=== PATIENT | male | born 1955 | race Caucasian/White ===

== ENCOUNTER 2021-04-10 00:35 | Inpatient (IN) | payer OTHER ==
[~2021-04-10] VITALS: Ht 203.2 cm; Wt 81.2 kg
[2021-04-10] MEDS ORDERED: TADA20TA PO (00:47)
[2021-04-10] MEDS ORDERED: ETOD300C27 PO (00:47)
[2021-04-10] MEDS ORDERED: METF500T17 PO (00:47)
[2021-04-10] MEDS ORDERED: FENO150C2 PO (00:47)
[2021-04-10] MEDS ORDERED: GABA-827 PO (00:47)
[2021-04-10 00:50] VITALS: BP 131/80
[2021-04-10] MEDS ORDERED: OXYcodone/APAP 10/325MG TABLET PO PRN (02:00)
[2021-04-10] MEDS ORDERED: DOXYCYCLINE 100 MG in DEXTROSE 5% 250 ML IV SCH (02:00)
[2021-04-10] MEDS ORDERED: ACETAMINOPHEN 325 MG TABLET PO PRN (02:00)
[2021-04-10] MEDS ORDERED: ENALAPRILAT 1.25 MG/ML, 2ML IVPush PRN (02:00)
[2021-04-10] MEDS ORDERED: GUAIFENESIN/DM 200-20MG, 10ML UDC PO PRN (02:00)
[2021-04-10] MEDS ORDERED: ZOLPIDEM 5MG TABLET PO PRN (02:00)
[2021-04-10] MEDS ORDERED: ONDANSETRON 2MG/ML, 2ML IVPush PRN (02:00)
[2021-04-10] MEDS: LIDODERM 5% PATCH TD PRN (02:45)
[2021-04-10] MEDS: HEPARIN 5,000 UNITS/ML, 1ML SQ SCH ×3 (02:45→17:15)
[2021-04-10] MEDS: SENNA/DOCUSATE TABLET PO SCH ×2 (02:46→08:40)
[2021-04-10] MEDS: HYDROmorphone 2 MG/ML, 1ML IVPush PRN ×5 (02:46→16:13)
[2021-04-10] MEDS: LACTATED RINGERS 1,000 ML IV SCH ×3 (02:46→22:28)
[2021-04-10 02:59] LABS: BASOPHILS % (AUTO) 1 % (0-1); EOSINOPHILS % (AUTO) 0 % (1-7); LYMPHOCYTES % (AUTO) 18 % (22-44); MEAN CORPUSCULAR HEMOGLOBIN 26.8 pg (27.5-34.5); MEAN CORPUSCULAR HGB CONC 33.3 g/dL (33.2-36.2); MEAN PLATELET VOLUME 6.1 fL (7.4-10.4); MONOCYTES % (AUTO) 12 % (2-9); NEUTROPHILS % (AUTO) 69 % (42-75); PLATELET COUNT 245 x10^3/uL (130-400); RED BLOOD COUNT 3.62 x10^6/uL (4.38-5.82); RED CELL DISTRIBUTION WIDTH 18.8 % (9.4-14.8)
[2021-04-10 03:11] LABS: ANION GAP 4 mmol/L (5-15); CALCIUM 8.2 mg/dL (8.5-10.1); CHLORIDE 100 mmol/L (98-107); CREATININE 0.64 mg/dL (0.7-1.3)
[2021-04-10 06:21] VITALS: BP 111/70
[2021-04-10] MEDS: OXYcodone IR 5MG TABLET PO PRN ×3 (08:40→20:56)
[2021-04-10] MEDS: GABAPENTIN 300 MG CAPSULE PO SCH ×3 (08:40→20:11)
[2021-04-10] MEDS: metFORMIN 500 MG TABLET PO SCH (08:40)
[2021-04-10] MEDS: FENOFIBRATE 145 MG TABLET PO SCH (08:41)
[2021-04-10] MEDS ORDERED: POTASSIUM PHOSPHATE 44 MEQ in SODIUM CHLORIDE 0.9% 500 ML IV ONE (10:00)
[2021-04-10] MEDS: GUAIFENESIN ER 600 MG TABLET PO SCH ×2 (10:58→20:11)
[2021-04-10] MEDS: CEFUROXIME 1.5 GM in SODIUM CHLORIDE 0.9% 50 ML IV SCH ×2 (10:58→17:14)
[2021-04-10 12:03] VITALS: BP 113/73
[2021-04-10] MEDS: DOXYCYCLINE 100MG TABLET PO SCH (17:15)
[2021-04-10 18:39] VITALS: BP 123/71
[2021-04-10] MEDS ORDERED: LACTULOSE 10 GM/15 ML UDC PO PRN (19:30)
[2021-04-10] MEDS ORDERED: HYDROmorphone PCA 30 MG/30 ML IV PRN (19:30)
[2021-04-10] MEDS: POLYETHYLENE GLYCOL 17 GM PACKET PO PRN (22:27)
[2021-04-10] MEDS: CALCIUM CARBONATE 500 MG TAB.CHEW PO PRN (22:27)
[2021-04-10] MEDS: METHOCARBAMOL 500 MG TABLET PO PRN (22:39)
[2021-04-11] MEDS: HEPARIN 5,000 UNITS/ML, 1ML SQ SCH ×3 (01:12→17:27)
[2021-04-11] MEDS: OXYcodone IR 5MG TABLET PO PRN ×4 (01:12→23:57)
[2021-04-11] MEDS: CEFUROXIME 1.5 GM in SODIUM CHLORIDE 0.9% 50 ML IV SCH ×3 (01:13→17:27)
[2021-04-11 01:23] VITALS: BP 127/72
[2021-04-11] MEDS: DOXYCYCLINE 100MG TABLET PO SCH ×2 (05:22→17:26)
[2021-04-11 05:30] LABS: BASOPHILS % (AUTO) 1 % (0-1); EOSINOPHILS % (AUTO) 0 % (1-7); LYMPHOCYTES % (AUTO) 15 % (22-44); MEAN CORPUSCULAR HEMOGLOBIN 26.8 pg (27.5-34.5); MEAN CORPUSCULAR HGB CONC 33.5 g/dL (33.2-36.2); MEAN PLATELET VOLUME 6.1 fL (7.4-10.4); MONOCYTES % (AUTO) 11 % (2-9); NEUTROPHILS % (AUTO) 73 % (42-75); PLATELET COUNT 234 x10^3/uL (130-400); RED BLOOD COUNT 3.43 x10^6/uL (4.38-5.82); RED CELL DISTRIBUTION WIDTH 18.8 % (9.4-14.8)
[2021-04-11 05:42] LABS: ALBUMIN 2.5 g/dL (3.4-5.0); ANION GAP 5 mmol/L (5-15); CALCIUM 8.1 mg/dL (8.5-10.1); CHLORIDE 100 mmol/L (98-107)
[2021-04-11 05:55] LABS: ALANINE AMINOTRANSFERASE 20 U/L (12-78); ALKALINE PHOSPHATASE 98 U/L (45-117); BILIRUBIN,TOTAL 0.8 mg/dL (0.2-1.0); TOTAL PROTEIN 6.3 g/dL (6.4-8.2)
[2021-04-11 07:54] VITALS: BP 116/67
[2021-04-11] MEDS ORDERED: POTASSIUM PHOSPHATE 44 MEQ in SODIUM CHLORIDE 0.9% 500 ML IV ONE (09:00)
[2021-04-11] MEDS: metFORMIN 500 MG TABLET PO SCH (09:09)
[2021-04-11] MEDS: GUAIFENESIN ER 600 MG TABLET PO SCH ×2 (09:10→19:43)
[2021-04-11] MEDS: FENOFIBRATE 145 MG TABLET PO SCH (09:10)
[2021-04-11] MEDS: GABAPENTIN 300 MG CAPSULE PO SCH (09:10)
[2021-04-11] MEDS: SENNA/DOCUSATE TABLET PO SCH (09:10)
[2021-04-11] MEDS: LACTATED RINGERS 1,000 ML IV SCH ×2 (09:11→19:43)
[2021-04-11] MEDS ORDERED: FENTANYL 25 MCG PATCH TD SCH (11:30)
[2021-04-11] MEDS: DEXAMETHASONE 4 MG/ML, 1ML IVPush SCH ×3 (11:42→23:51)
[2021-04-11 13:52] VITALS: BP 130/73
[2021-04-11 19:30] VITALS: BP 145/75
[2021-04-11] MEDS: POLYETHYLENE GLYCOL 17 GM PACKET PO PRN (19:43)
[2021-04-11 23:57] VITALS: BP 132/72
[2021-04-12] MEDS: CALCIUM CARBONATE 500 MG TAB.CHEW PO PRN (01:44)
[2021-04-12] MEDS: CEFUROXIME 1.5 GM in SODIUM CHLORIDE 0.9% 50 ML IV SCH ×3 (01:44→17:23)
[2021-04-12] MEDS: HEPARIN 5,000 UNITS/ML, 1ML SQ SCH ×3 (01:44→17:23)
[2021-04-12] MEDS: DEXAMETHASONE 4 MG/ML, 1ML IVPush SCH ×4 (05:10→23:49)
[2021-04-12] MEDS: DOXYCYCLINE 100MG TABLET PO SCH ×2 (05:10→17:23)
[2021-04-12] MEDS: LACTATED RINGERS 1,000 ML IV SCH (05:15)
[2021-04-12 07:19] VITALS: BP 124/74
[2021-04-12] MEDS: SENNA/DOCUSATE TABLET PO SCH (09:35)
[2021-04-12] MEDS: GUAIFENESIN ER 600 MG TABLET PO SCH ×2 (09:35→20:55)
[2021-04-12 13:59] VITALS: BP 163/78
[2021-04-12] MEDS: OXYcodone IR 5MG TABLET PO PRN ×2 (17:24→21:35)
[2021-04-12 19:23] VITALS: BP 154/79
[2021-04-12] MEDS: LORazepam 2 MG/ML, 1ML IVPush PRN (19:37)
[2021-04-12] MEDS: METHOCARBAMOL 500 MG TABLET PO PRN (19:37)
[2021-04-13 01:19] VITALS: BP 129/76
[2021-04-13] MEDS: CEFUROXIME 1.5 GM in SODIUM CHLORIDE 0.9% 50 ML IV SCH ×3 (01:53→18:11)
[2021-04-13] MEDS: HEPARIN 5,000 UNITS/ML, 1ML SQ SCH ×3 (01:53→16:58)
[2021-04-13] MEDS: OXYcodone IR 5MG TABLET PO PRN ×4 (01:55→20:47)
[2021-04-13] MEDS: LORazepam 2 MG/ML, 1ML IVPush PRN ×2 (02:53→16:58)
[2021-04-13] MEDS: METHOCARBAMOL 500 MG TABLET PO PRN ×2 (05:13→19:27)
[2021-04-13] MEDS: DOXYCYCLINE 100MG TABLET PO SCH ×2 (05:13→16:57)
[2021-04-13] MEDS: DEXAMETHASONE 4 MG/ML, 1ML IVPush SCH (05:14)
[2021-04-13 07:04] VITALS: BP 157/92
[2021-04-13] MEDS: SENNA/DOCUSATE TABLET PO SCH (09:00)
[2021-04-13] MEDS: GUAIFENESIN ER 600 MG TABLET PO SCH ×2 (09:17→20:46)
[2021-04-13] MEDS ORDERED: HYDROmorphone PCA 30 MG/30 ML IV PRN (11:30)
[2021-04-13] MEDS ORDERED: FENTANYL 75 MCG PATCH TD SCH (11:30)
[2021-04-13] MEDS ORDERED: HYDROmorphone 1 MG/ML, 1ML INJ IV PRN (11:30)
[2021-04-13] MEDS ORDERED: FENTANYL REMOVE PATCH NOTE XX SCH (11:30)
[2021-04-13] MEDS ORDERED: FENTANYL 25 MCG PATCH ONE (11:37)
[2021-04-13] MEDS ORDERED: FENTANYL 50 MCG PATCH ONE (11:37)
[2021-04-13] MEDS: DEXAMETHASONE 4 MG TABLET PO SCH ×2 (11:40→16:57)
[2021-04-13 12:42] VITALS: BP 156/83
[2021-04-13 19:20] VITALS: BP 139/79
[2021-04-14] MEDS: OXYcodone IR 5MG TABLET PO PRN ×6 (00:22→21:23)
[2021-04-14 00:29] VITALS: BP 154/89
[2021-04-14] MEDS: CAPSAICIN CRM 0.075%, 60GM TP PRN ×2 (00:46→19:30)
[2021-04-14] MEDS: LORazepam 2 MG/ML, 1ML IVPush PRN ×2 (00:46→05:01)
[2021-04-14] MEDS: HEPARIN 5,000 UNITS/ML, 1ML SQ SCH ×3 (02:11→18:20)
[2021-04-14] MEDS: CEFUROXIME 1.5 GM in SODIUM CHLORIDE 0.9% 50 ML IV SCH ×3 (02:12→17:50)
[2021-04-14] MEDS: DOXYCYCLINE 100MG TABLET PO SCH ×2 (05:01→17:49)
[2021-04-14] MEDS: METHOCARBAMOL 500 MG TABLET PO PRN ×2 (05:01→16:15)
[2021-04-14 08:04] VITALS: BP 138/72
[2021-04-14] MEDS: DEXAMETHASONE 4 MG TABLET PO SCH ×3 (10:01→17:49)
[2021-04-14] MEDS: GUAIFENESIN ER 600 MG TABLET PO SCH ×2 (10:01→21:22)
[2021-04-14] MEDS: SENNA/DOCUSATE TABLET PO SCH (10:01)
[2021-04-14] MEDS ORDERED: FENTANYL REMOVE PATCH NOTE XX SCH (11:30)
[2021-04-14 13:44] VITALS: BP 148/80
[2021-04-14] MEDS ORDERED: FENTANYL 50 MCG PATCH TD SCH (18:00)
[2021-04-14 18:40] VITALS: BP 150/81
[2021-04-15] MEDS: METHOCARBAMOL 500 MG TABLET PO PRN ×2 (00:17→07:51)
[2021-04-15 00:25] VITALS: BP 159/76
[2021-04-15] MEDS: LIDODERM 5% PATCH TD PRN (00:34)
[2021-04-15] MEDS: HEPARIN 5,000 UNITS/ML, 1ML SQ SCH ×2 (01:59→10:00)
[2021-04-15] MEDS: OXYcodone IR 5MG TABLET PO PRN ×2 (01:59→05:32)
[2021-04-15] MEDS: CEFUROXIME 1.5 GM in SODIUM CHLORIDE 0.9% 50 ML IV SCH ×2 (01:59→12:33)
[2021-04-15] MEDS: CAPSAICIN CRM 0.075%, 60GM TP PRN (03:32)
[2021-04-15] MEDS: DOXYCYCLINE 100MG TABLET PO SCH (05:32)
[2021-04-15 06:37] VITALS: BP 131/76
[2021-04-15] MEDS: SENNA/DOCUSATE TABLET PO SCH (07:50)
[2021-04-15] MEDS: GUAIFENESIN ER 600 MG TABLET PO SCH (07:51)
[2021-04-15] MEDS: DEXAMETHASONE 4 MG TABLET PO SCH ×2 (07:51→12:32)
[2021-04-15] MEDS: HYDROmorphone 2 MG/ML, 1ML IVPush PRN ×3 (08:55→16:04)
[2021-04-15] MEDS ORDERED: OXYcodone IR 5MG TABLET PO PRN (10:00)
[2021-04-15] MEDS ORDERED: DEXA4TAB66 PO (11:23)
[2021-04-15] MEDS ORDERED: FENT1PAT76 TD (11:23)
[2021-04-15] MEDS ORDERED: OXYC5TAB98 PO (11:23)
[2021-04-15] MEDS ORDERED: CAPS57CR2 TP (11:23)
[2021-04-15] MEDS ORDERED: POLY17PO5 PO (11:23)
[2021-04-16] MEDS ORDERED: FENTANYL REMOVE PATCH NOTE XX SCH (11:29)
[2021-04-16] MEDS ORDERED: FENTANYL 50 MCG PATCH TD SCH (11:30)
== END 2021-04-15 16:00 | disposition hospice, home (50) | DRG 871 ==
LOC: 5SO 00:35 → 4NW 20:43
PROVIDERS: ADMIT Internal Medicine; ATTEND Internal Medicine
DX: A41.9 Sepsis, unspecified organism (principal); J18.9 Pneumonia, unspecified organism; J96.01 Acute respiratory failure with hypoxia; E87.1 Hypo-osmolality and hyponatremia; I30.9 Acute pericarditis, unspecified; C79.70 Secondary malignant neoplasm of unspecified adrenal gland; J91.0 Malignant pleural effusion; C79.51 Secondary malignant neoplasm of bone; C79.89 Secondary malignant neoplasm of other specified sites; C77.9 Secondary and unspecified malignant neoplasm of lymph node, unspecified; Z51.5 Encounter for palliative care; Z66 Do not resuscitate; B18.2 Chronic viral hepatitis C; D63.8 Anemia in other chronic diseases classified elsewhere; E11.65 Type 2 diabetes mellitus with hyperglycemia; E78.5 Hyperlipidemia, unspecified; E83.39 Other disorders of phosphorus metabolism; E86.1 Hypovolemia; E88.09 Other disorders of plasma-protein metabolism, not elsewhere classified; G89.3 Neoplasm related pain (acute) (chronic); K59.00 Constipation, unspecified; R65.20 Severe sepsis without septic shock; Z79.899 Other long term (current) drug therapy; Z80.1 Family history of malignant neoplasm of trachea, bronchus and lung; Z85.118 Personal history of other malignant neoplasm of bronchus and lung; Z87.891 Personal history of nicotine dependence; Z88.0 Allergy status to penicillin; Z98.42 Cataract extraction status, left eye; Z88.6 Allergy status to analgesic agent
CPT/HCPCS: 36415; 80048; 80053; 83605; 83735; 84100; 84443; 85025; 93306; G0378; J0697; J1100; J1170; J1644; J7060; J2060; J7040; J7120